=== PATIENT | male | born 1980 | race African-American/Black ===

== ENCOUNTER 2023-12-22 16:32 | Emergency (ER) | payer SELFPAY ==
[2023-12-22 16:40] VITALS: BP 128/111; PULSE 129; RESP 20; TEMP 37.2; O2SAT 98
--- NOTE | 2023-12-22 16:55 | ED.URI ---
HPI - URI/Sore Throat General Chief Complaint: Upper Respiratory Infection Stated Complaint: Cough/Chest Congestioin Time Seen by Provider: 12/22/23 16:55 Source: patient and RN notes reviewed Mode of arrival: ambulatory Limitations: no limitations History of Present Illness HPI Narrative: 43-year-old male presents with concern for cough for several weeks. Reports history of asthma and has been using his inhaler every 4-5 hours. Reports he had COVID in October and has been coughing since then. Reports cough is persistent and worse at night keeping him awake MD elicited complaint: cough Related Data Allergies Allergy/AdvReac Type Severity Reaction Status Date / Time benzonatate Allergy Unknown Verified 12/22/23 16:53 [From [facility]] guaifenesin Allergy Nausea Verified 12/22/23 16:53 prochlorperazine Allergy Unknown Verified 12/22/23 16:53 [From Compazine] tramadol Allergy Unknown Verified 12/22/23 16:53 Review of Systems Review of Systems: CONSTITUTIONAL: Denies malaise, chills, sweats, or fever. EYES: Denies visual changes, redness, or discharge. ENT: Denies rhinorrhea, congestion, sinus pain, otalgia and sore throat. CARDIOVASCULAR: Denies chest pain, palpitations, or edema. RESPIRATORY: Reports persist cough. Denies dyspnea. GASTROINTESTINAL: Denies abdominal pain, nausea, vomiting, diarrhea SKIN: Denies rash or itching. MUSCULOSKELETAL: Denies myalgia. NEUROLOGIC: Denies headache. All systems reviewed & are unremarkable except as noted in HPI and below PMFSH Comments At time of signature, agree with nursing past medical, surgical, social and family history. There is no relevant family history pertinent to the presenting complaint Exam Narrative: GENERAL: Well-appearing, well-nourished, and in no acute distress. HEAD: Normocephalic EYES: PERRLA, conjunctivae clear ENT: Nares clear. Mucous membranes moist. TM pearly ramsay with sharp light reflex bilaterally; no tragal tenderness. Oropharynx not erythematous without lesions. Tonsils not enlarged and without exudate, no drooling, no hoarseness, no trismus, uvula midline. NECK: Supple. No lymphadenopathy CHEST: Clear to auscultation, breath sounds equal. No wheezing, rhonchi, rales, or stridor. No respiratory distress, speaks in full sentences. HEART: Regular rate and rhythm. No murmur heard. SKIN: Warm, dry, no rash. NEURO: Alert and oriented x3. PSYCH: Normal mood and affect Course Course Emergency Course: Patient is aware of diagnosis, understands and agrees to treatment plan. Anticipatory guidance given. Patient agrees to follow-up as directed and is aware of reasons to seek care at the emergency department. Portions of this record may have been created with voice recognition software Level of Care: Express Care Visit Vital Signs Vital signs: Vital Signs Temperature 98.9 F 12/22/23 16:40 Pulse Rate 129 H 12/22/23 16:40 Respiratory Rate 20 12/22/23 16:40 Blood Pressure 128/111 H 12/22/23 16:40 Pulse Oximetry 98 12/22/23 16:40 Oxygen Delivery Room Air 12/22/23 16:40 Temperature 98.9 F 12/22/23 16:40 Pulse Rate 129 H 12/22/23 16:40 Respiratory Rate 20 12/22/23 16:40 Blood Pressure 128/111 H 12/22/23 16:40 Pulse Oximetry 98 12/22/23 16:40 Oxygen Delivery Room Air 12/22/23 16:40 Reviewed. MDM - URI/Sore Throat MDM Narrative Medical decision making narrative: Differential diagnosis considered: Guerrero virus, strep pharyngitis, allergic rhinitis, upper respiratory tract infection, sinusitis, rhinosinusitis, nasopharyngitis. viral pharyngitis, otitis media, otitis externa, pneumonia, bronchitis, viral cough syndrome, viral syndrome, and influenza. Exam findings show no acute concerns or changes; patient is non-toxic appearing and is in no distress. Patient is appropriate for outpatient treatment and follow-up. Lab Data Attestation: I reviewed the patient's lab results. Critical Care Time
== END 2023-12-22 17:18 | disposition home or self-care (01) ==
PROVIDERS: Emergency Provider Nurse Practitioner
DX: J40 Bronchitis, not specified as acute or chronic (principal)
CPT/HCPCS: 99203; G0463